=== PATIENT | female | born 1975 | race Caucasian/White ===

== ENCOUNTER 2017-07-31 02:24 | Emergency (ER) | payer SELFPAY ==
[2017-07-31 02:25] VITALS: BP 108/71; PULSE 103; RESP 16; TEMP 36.2; O2SAT 99; BMI 25.9
--- NOTE | 2017-07-31 02:50 | RAD_ITS ---
STUDY: X-RAY CHEST REASON FOR EXAM: Female, 41 years old. Unresponsive TECHNIQUE: Frontal view COMPARISON: None. FINDINGS: The lungs are clear and expanded. There is no demonstrated pleural abnormality. Normal size heart. Normal mediastinum and jasmin. Normal visualized pulmonary arteries. Normal visualized aortic arch and descending thoracic aorta. Normal visualized thoracic spine. Normal visualized ribs, clavicles, and shoulders. There is no demonstrated abnormality of the visualized soft tissue structures of the upper abdomen. RAD/Chest 1 View (Portable) IMPRESSION: Normal x-ray examination of the chest. Electronically Signed: Keenan Kaur MD at 4:22 EDT , Service support ,
--- NOTE | 2017-07-31 02:50 | CT_ITS ---
STUDY: CT BRAIN WITHOUT CONTRAST REASON FOR EXAM: Female, 41 years old. Unresponsive RADIATION DOSAGE (If Supplied By Facility): CTDIvol = ( 44.99 ) mGy, DLP = ( 796.11 ) mGycm TECHNIQUE: Transaxial CT imaging of the brain was performed without administration of intravenous contrast material. Individualized dose optimization techniques were used for this CT. COMPARISON: None. FINDINGS: Normal soft tissue structures. Normal calvarium. Normal size ventricles and extra-axial spaces for the patient's age. Normal white matter tracts of the cerebral hemispheres. Normal basal ganglia and thalami. Normal brainstem. Normal cerebellum. There is no intracranial hemorrhage. There are no findings of an acute ischemic infarction. Normal visualized paranasal sinuses. CT/Brain/Head without Contrast IMPRESSION: Normal unenhanced CT scan of the brain. Electronically Signed: Keenan Kaur MD at 4:08 EDT , Service support ,
--- NOTE | 2017-07-31 02:51 | EKG12_ITS ---
Test Reason : ALT MENTAL STATUS Blood Pressure : / mmHG Vent. Rate : 103 BPM Atrial Rate : 103 BPM P-R Int : 132 ms QRS Dur : 070 ms QT Int : 354 ms P-R-T Axes : 061 068 042 degrees QTc Int : 463 ms Sinus tachycardia Otherwise normal ECG Confirmed by TRICIA QUIÑONES ([id number]), food editor CHANG MADRIGAL ([id number] on 08/03/2017 10:22:14 AM Referred By: TIMOTHY Confirmed By:TRICIA QUIÑONES
[2017-07-31 03:14] LABS: Carboxyhemoglobin Frac (CO) 1.7 % (0.0-1.5)
[2017-07-31 03:16] LABS: Absolute Lymphocyte Count 2.25 X10^3/ul (0.83-4.51); Absolute Neutrophil Count 3.6 X10^3/uL (2.0-7.7); Basophil# 0.05 X10^3/uL; Basophil% 0.8 % (0-1); Eosinophil# 0.29 X10^3/uL; Eosinophils% 4.4 % (0-5); Hematocrit 36.7 % (37-47); Lymphocyte # 2.25 X10^3/ul (4.0); Lymphocyte % 34.1 % (19-41); Mean Corp Hgb Conc 32.7 g/gl (32-36); Mean Corpuscular Hgb 29.8 pg (27.0-32.0); Mean Corpuscular Volume 91.1 fL (81-99); Mean Platelet Vol. 9.6 fl (6.2-12.0); Monocyte# 0.36 X10^3/uL; Monocyte% 5.5 % (0-10); Neutrophil # 3.62 X10^3/uL (2.7-7.7); Neutrophil % 54.9 % (47-70); POSITIVE COUNT NO; POSITIVE DIFFERENTIAL NO; POSITIVE MORPHOLOGY NO; Platelet Count 362 K/mm3 (150-450); RBC Distribution Width SD 46.1 fl (35.1-43.9); Red Blood Count 4.03 M/mm3 (4.2-5.4); White Blood Count 6.6 K/mm3 (4.4-11.0)
[2017-07-31] MEDS: 0.9% Normal Saline 1,000 ML 1000 ML IV (03:19)
[2017-07-31 03:23] LABS: Anion Gap 9 (5-15); BUN 13 mg/dL (7-18); BUN/Creat Ratio 15.4 RATIO (10-20); Calcium,Total 8.1 mg/dL (8.5-10.1); Chloride 110 mmol/L (98-107); Creatinine, Serum 0.84 mg/dL (0.55-1.02); EST Glomerular Filtration Rate 80 mL/min (>60); Est Glom Filt Rate - Afr Amer 96 mL/min (>60); Estimated Creatinine Clearance 80.91 ml/min; Glucose 94 mg/dL (74-106); Potassium 3.8 mmol/L (3.5-5.1); Sodium Level 145 mmol/L (136-145)
--- NOTE | 2017-07-31 03:23 | ED.DCSUM_ITS ---
- ER Visit Summary Date of Service: 07/31/17 Chief Complaint: Unresponsive History of Present Illness: The patient is a 41 F found unresponsive in a car at a gas station. Patient states that she worked all day. She had dinner with friends. She states she had 2 glasses of wine. She states she went back to their house. States around 11 [address] home and that is the last thing she remembers. She denies drug use. Denies drinking any more alcohol. She states the next thing she remembers is someone knocking on her window at a gas station parking lot almost 4 hours later. She does not recall what happened or how she got there. Physical Examination: Vitals are stable. Patient is afebrile. Alert no acute distress. HEENT exam is unremarkable. Neck is supple. No meningismus Lungs are clear and equal bilaterally. Heart is regular rate and rhythm. Abdomen is soft nontender nondistended. Extremities are unremarkable. Skin is warm and dry. No focal neurologic deficit. NIH 0 Remainder of exam is unremarkable. Emergency Department Course and Treatment: EKG is sinus rate of 103 with no acute changes. CBC, chemistries unremarkable. Urinalysis unremarkable. HCG negative. Chest x-ray shows no acute process. CT head shows no acute process. Carbon monoxide level is 1.7. Tox is negative. Salicylate level is less than 1.7. Tylenol level less than 2.0. Alcohol level 178. Her alcohol level was drawn 4 hours after she stated that she left her friend's house. She likely passed out due to high alcohol level. She is observed until sober and will be discharged. Disposition: Discharge home Impression: Alcohol intoxication This note was generated with [employer] dictation software. It may contain incorrect words, spelling, and punctuation that were not noted in review of the chart prior to signing ED Disposition - Plan for ED Patient: Chief Complaint: Alt LOC Instructions: ED Alcohol Intoxication Referrals: Baltazar Mohan [Primary Care Provider] -
[2017-07-31 03:36] LABS: Bacteria 0 SEEN /hpf (None Seen); Mucous, Urine 0 SEEN /hpf (<or=2+); Red Blood Cells-Urine 0 SEEN /hpf (0-5)
[2017-07-31 03:43] LABS: Pregnancy, Serum, hCG Quali. NEGATIVE Negative (0-9 Nonpreg)
[2017-07-31 03:43] LABS: Color, Urine Yellow (Yellow); Glucose, Dipstick Normal (Normal); Ketone-Dipstick Negative (Negative); Leukocyte Esterase-Dipstick 25 /ul (Negative); Nitrite-Dipstick Negative (Negative); Occult Blood-Urine Negative /ul (Negative); Protein-Dipstick Negative (Negative); Urine Bilirubin Dipstick Negative (Negative); Urine Clarity Clear (Clear); Urine Urobilinogen Normal (Normal)
[2017-07-31 03:49] LABS: Squamous Epithelial Cells - UA 5-10 SEEN /hpf (5-10); White Blood Cells 0-5 SEEN /hpf (0-5)
[2017-07-31 03:53] LABS: Amphetamine Urine VISTA NEGATIVE (<1000 ng/mL); Barbiturate Urine VISTA NEGATIVE (< 200 ng/mL); Benzodiazepine Urine VISTA NEGATIVE (< 200 ng/mL); Cocaine Urine VISTA NEGATIVE (< 300 ng/mL); Ecstacy Urine VISTA NEGATIVE (< 500 ng/mL); Methadone Urine VISTA NEGATIVE (< 300 ng/mL); PCP Urine VISTA NEGATIVE (< 25 ng/mL); THC Urine VISTA NEGATIVE (< 50 ng/mL); Vista UDS pH Range 6
[2017-07-31 04:21] LABS: Salicylate < 1.7 mg/dL (2.8-20.0)
--- NOTE | 2017-07-31 04:38 | ED.DEP ---
ED Disposition - Plan for ED Patient: Chief Complaint: Alt LOC Instructions: ED Alcohol Intoxication Referrals: Baltazar Mohan [Primary Care Provider] -
[2017-07-31 04:57] LABS: Acetaminophen (Tylenol) Level < 2.0 ug/mL (10.0-30.0)
[2017-07-31 05:04] VITALS: BP 108/64; PULSE 80; RESP 16; O2SAT 100
== END 2017-07-31 05:45 | disposition home or self-care (01) ==
PROVIDERS: Emergency Provider Emergency Medicine; Family Provider Internal Medicine Infectious Disease; PCP Internal Medicine Infectious Disease
DX: F10.129 Alcohol abuse with intoxication, unspecified (principal); Y90.6 Blood alcohol level of 120-199 mg/100 ml; F32.9 Major depressive disorder, single episode, unspecified
CPT/HCPCS: 70450; 71045; 80048; 80307; 80320; 80329; 81001; 82375; 84703; 85025; 93005; 99285; J7030; A4216; G0480

== ENCOUNTER → 2019-08-17 15:57 | Outpatient (CLI) | payer SELFPAY ==
[2019-08-23 00:39] LABS: HPV Reflexed? NOT INDICATED
== END ==
PROVIDERS: PCP Internal Medicine Infectious Disease; Visit Provider Obstetrics & Gynecology
DX: Z12.4 Encounter for screening for malignant neoplasm of cervix (principal)
CPT/HCPCS: 88175; G0145

== ENCOUNTER 2021-12-29 16:12 | Emergency (ER) | payer OTHER, SELFPAY ==
[2021-12-29 16:14] VITALS: BP 175/111; PULSE 115; RESP 18; TEMP 36.6; O2SAT 100; BMI 26.2
--- NOTE | 2021-12-29 16:30 | ED.RN ---
pt admits to being up all night partying with friends. cocaine, estysy and alcohol
--- NOTE | 2021-12-29 16:36 | EKG12_ITS ---
Test Reason : Blood Pressure : / mmHG Vent. Rate : 114 BPM Atrial Rate : 114 BPM P-R Int : 146 ms QRS Dur : 076 ms QT Int : 356 ms P-R-T Axes : 040 063 029 degrees QTc Int : 490 ms Sinus tachycardia Otherwise normal ECG Confirmed by ANAY DONG, AMALIA ([id number]), visual effects editor BAILEE ACOSTA ([id number]) on 12/31/2021 8:48:00 AM Referred By: ANGELA Confirmed By:AMALIA CUEVA MD
--- NOTE | 2021-12-29 16:37 | EX.ED.DYSGE1 ---
HPI History of Present Illness Chief Complaint: Weakness Informant: patient and friend Narrative Narrative: Presented here with weakness palpitations this morning. Patient with underlying stress. Last evening with friends drank alcohol took ecstasy and cocaine. She states she uses recreational drugs sporadically. She denies suicidal homicidal ideations. She has not slept and currently 4 PM. She states she has not had this happen before. She denies any allergies. Reports history of panic attacks also. Reports currently nauseated. Denies cough. Denies vomiting or diarrhea. Denies urinary symptoms. [facility] Medical History (Updated 12/29/21 @ 17:[address] Edward Crane DO) Borderline hypertension Panic disorder Home Medications venlafaxine 75 mg tablet 75 mg PO DAILY 07/31/17 [History Last Taken Unknown] hydroxyzine pamoate 25 mg capsule 25 mg PO TID PRN PRN Anxiety #20 caps 12/29/21 [Rx Last Taken Unknown] ondansetron 4 mg disintegrating tablet 4 mg PO Q6H PRN nausea and vomiting #10 tabs 12/29/21 [Rx Last Taken Unknown] Allergy/AdvReac Type Severity Reaction Status Date / Time No Known Allergies Allergy Verified 12/29/21 16:17 Social History Smoking Status: Never smoker [facility] ED Constitutional Constitutional ED: Denies chills, fever(s) or sweats Eyes Eyes: Denies change in vision ENT ENT ED: Denies dysphagia or sore throat Cardiovascular Cardiovascular: Reports palpitations; Denies chest pain, leg edema or racing heartbeat Respiratory/Chest Respiratory/Chest: Denies cough, dyspnea or dyspnea on exertion Gastrointestinal Gastrointestinal: Reports nausea; Denies abdominal pain, diarrhea or vomiting Genitourinary Genitourinary ED: Denies dysuria, hematuria or urinary frequency Musculoskeletal Musculoskeletal: Denies back pain, extremity pain or neck pain Integumentary Denies rash or wounds Neurologic Neurologic: Denies headache(s), paresthesias or weakness Psychiatric Psychiatric: Denies suicidal ideation or suicidal thoughts EXAM Physical Exam Const Vital Signs: 12/29/21 16:14 12/29/21 16:49 Temperature 98 F Temperature Source Temporal Pulse Rate 115 H Respiratory Rate 18 Respiratory Effort Normal Blood Pressure 175/111 H Blood Pressure Mean 132 Pulse Ox 100 Oxygen Delivery Method Room Air Positive well nourished and well developed General Appearance ED: well developed and NAD HEENT Reports dry mucous membranes HEENT Narrative: Mild dry mucosal membranes normocephalic and atraumatic Mouth ED: Yes dry mucous membranes Mouth: dry mucous membranes Eyes PERRL, EOMs intact bilaterally and conjunctivae normal General Eye ED: Yes normal appearance of both eyes Neck no lymphadenopathy and supple General: Negative for tenderness Chest Wall Chest: Negative for tenderness Resp normal respiratory effort and normal air movement Effort and Inspection: symmetric chest movement; Negative for respiratory distress Cardio regular rhythm and no murmurs Rate: tachycardic Peripheral Pulses: pulses 2+ throughout GI normal to inspection, nondistended, normoactive bowel sounds and non-tender Palpation: Negative for guarding or rebound tenderness present Back/Spine no CVA tenderness and no thoracic nor lumbar tenderness Extremity normal to inspection General Extremety ED: Negative for edema or tenderness General Extremity: Negative for edema Neuro oriented x3 and no sensory deficits noted Sensorium / Orientation: awake and alert Skin no rashes or lesions noted and no wounds MDM MDM MDM Narrative Medical decision making narrative: Patient tachycardic elevated blood pressure. EKG sinus rhythm. With her reported history of ecstasy and cocaine likely residual results causing her to be symptomatic. She has slight dry mucosal membranes. We will check labs, will treat with fluids Zofran and Ativan. Will reevaluate. Labs stable slight hypokalemia at 3.4. On reevaluation clinically was feeling better she still slightly tachycardic, however likely residual effects. Low concerns for PE as she denies dyspnea with her tachycardia. There is clear reasons for her tachycardia. She denies suicidal or homicidal ideations. We will send prescription for hydroxyzine and Zofran to her pharmacy. She is tolerating p.o. intake while in the ED. She will follow-up as an outpatient. All questions were answered. Lab Data Attestation: I reviewed the patient's lab results. Labs: Laboratory Results - last 24 hr 12/29/21 12/29/21 16:30 16:30 WBC 11.3 H RBC 4.36 Hgb 13.0 Hct 39.9 MCV 91.5 MCH 29.8 MCHC 32.6 RDW Std Deviation 49.1 H RDW Coeff of Shae 14.5 Plt Count 372 MPV 9.6 Immature Gran % (Auto) 0.500 Neut % (Auto) 76.1 H Lymph % (Auto) 14.3 L Banks % (Auto) 7.2 Eos % (Auto) 1.4 Baso % (Auto) 0.5 Absolute Neuts (auto) 8.6 H Absolute Lymphs (auto) 1.61 Nucleated RBC % 0 Sodium 139 Potassium 3.4 L Chloride 105 Carbon Dioxide 25.0 Anion Gap 9 BUN 9 Creatinine 0.86 Estim Creat Clear Calc 75.12 Est GFR (MDRD) Af Amer 93 Est GFR (MDRD) Non-Af 77 BUN/Creatinine Ratio 10.5 Glucose 125 H Calcium 9.5 EKG Initial EKG: Attestation: I personally reviewed and interpreted this EKG as follows: Comments: Sinus rate of 114, no ST or T wave changes. Discharge Plan Triage Chief Complaint: Weakness ED Provider: Edward Crane Dx/Rx/DC Orders Clinical Impression: Palpitation, Anxiety, Polysubstance use disorder, Hypokalemia Instructions: Hypokalemia Dc, ED Anxiety Reaction, ED Palpitations Prescriptions: New hydroxyzine pamoate [hydroxyzine pamoate] 25 mg capsule 25 mg PO TID PRN PRN (Reason: Anxiety) Qty: 20 0RF ondansetron 4 mg tablet,disintegrating 4 mg PO Q6H PRN (Reason: nausea and vomiting) Qty: 10 0RF No Action venlafaxine 75 MG tablet 75 mg PO DAILY Primary Care Provider: Baltazar Mohan Referrals: [facility] Doctor,Out of [Non-Staff] - 1 Week Activity Restrictions/Additional Instructions: Your symptoms combination of your anxiety and your polysubstance use. Avoid drug use. Take medications as prescribed and follow-up with your doctor. Disposition Disposition: Home, Self Care
[2021-12-29 16:56] LABS: Absolute Lymphocyte Count 1.61 X10^3/uL (0.83-4.51); Absolute Neutrophil Count 8.6 X10^3/uL (2.0-7.7); Basophil# 0.06 X10^3/uL; Basophil% 0.5 % (0-1); Eosinophil# 0.16 X10^3/uL; Eosinophils% 1.4 % (0-5); Hematocrit 39.9 % (37-47); Lymphocyte # 1.61 X10^3/ul (0.83-4.51); Lymphocyte % 14.3 % (19-41); Mean Corp Hgb Conc 32.6 g/dL (32-36); Mean Corpuscular Hgb 29.8 pg (27.0-32.0); Mean Corpuscular Volume 91.5 fL (81-99); Mean Platelet Vol. 9.6 fl (6.2-12.0); Monocyte# 0.81 X10^3/uL; Monocyte% 7.2 % (0-10); NRBC Flagged by Analyzer 0 % (0-5); Neutrophil # 8.57 X10^3/uL (2.7-7.7); Neutrophil % 76.1 % (47-70); Platelet Count 372 K/mm3 (150-450); RBC Distribution Width CV 14.5 % (11.6-14.6); RBC Distribution Width SD 49.1 fl (35.1-43.9); Red Blood Count 4.36 M/mm3 (4.2-5.4); White Blood Count 11.3 K/mm3 (4.4-11.0)
[2021-12-29] MEDS: Ondansetron 4 MG/2 ML Vial IV (16:57)
[2021-12-29] MEDS: LORazepam 2 MG/ML Syringe 1 MG IV (16:57)
[2021-12-29] MEDS: 0.9% Normal Saline 1,000 ML 1000 ML IV (16:57)
[2021-12-29 17:09] LABS: Anion Gap 9 (5-15); BUN 9 mg/dL (7-18); BUN/Creat Ratio 10.5 RATIO (10-20); Calcium,Total 9.5 mg/dL (8.5-10.1); Chloride 105 mmol/L (98-107); Creatinine, Serum 0.86 mg/dL (0.55-1.02); EST Glomerular Filtration Rate 77 mL/min (>60); Est Glom Filt Rate - Afr Amer 93 mL/min (>60); Estimated Creatinine Clearance 75.12 ml/min; Glucose 125 mg/dL (74-106); Potassium 3.4 mmol/L (3.5-5.1); Sodium Level 139 mmol/L (136-145)
[2021-12-29] MEDS: Potassium Chloride Oral Tablet 20 MEQ PO (17:57)
== END 2021-12-29 18:12 | disposition home or self-care (01) ==
PROVIDERS: Emergency Provider Emergency Medicine; PCP Internal Medicine Infectious Disease; Visit Provider Emergency Medicine
DX: R00.2 Palpitations (principal); F19.19 Other psychoactive substance abuse with unspecified psychoactive substance-induced disorder; E87.6 Hypokalemia; I10 Essential (primary) hypertension; R53.1 Weakness; F41.9 Anxiety disorder, unspecified
CPT/HCPCS: 80048; 85025; 93005; 99285; J7030; J2405

== ENCOUNTER 2023-02-14 05:35 | Emergency (ER) | payer SELFPAY ==
[2023-02-14 05:36] VITALS: BP 100/61; BP 117/68; PULSE 119; PULSE 60; RESP 14; RESP 18; TEMP 36.1; O2SAT 100; O2SAT 93; BMI 27.4
--- OUTSIDE RECORDS SUMMARY | 2023-02-14 06:23 | XMS RPT_ITS | CCD ---
Author Name Unknown Address [address] [place] [address] Organization [facility] Care Team Providers Care Embedded Systems Developer Name Role Phone LIBAN FORMAN MD Admitting Unavailable LIBAN FORMAN MD Attending Unavailable LIBAN FORMAN MD Primary Care Unavailable LIBAN FORMAN MD Consulting Unavailable PROVIDER, UNKNOWN Consulting Unavailable PROVIDER, UNKNOWN Consulting Unavailable PROVIDER, UNKNOWN Consulting Unavailable Problems Problem Classification Problem Date Documented Da te Episodic/Chronic Other nutritional; endocrine; and metabolic disorders (1 source) Abnormal weight gain; Translations: [Abnormal weight gain] Onset: 08-25-2022 Episodic Results Test Name Value Interpretation Reference Range Facil ity Encounters Encounter Date Encounter Type Care Provider Facility Start: 08-25-2022 ambulatory LIBAN Webb [facility] Progress note 09-12-2020 Note Date & Type Note Facility 09-12-2020 Note HNO ID: [id number] Author: Jason Ortiz APRN.[employer] Service: ? Author Type: Nurse Practitioner Type: Progress Notes Filed: 09/12/2020 2:45 PM Note Text: Subjective HPI Nontoxic-appearing female presents urgent care chief complaint sinus pressure and drainage. Duration of sinus pressure 8 days. Associated symptoms sinus pressure ear pain and head congestion. States she does have a transient cough. Patient states sinus pressure has worsened over the last 2 days. No OTC medication use. No known sick contacts. Has had COVID-19 approximately 10 months ago. Is not vaccinated. Denies any fevers, productive cough, abdominal pain, chest pain, shortness of breath pleuritic pain, visual changes or change in bowel or bladder habit. Past medical history prescription medication use allergies reviewed. .Patient presents with: Head Congestion: drainage, ear pain x 1 week History reviewed. No pertinent past medical history. History reviewed. No pertinent surgical history. ALLERGIES Patient has no known allergies. MEDICATIONS venlafaxine (EFFEXOR) 75 mg tablet Take 75 mg by mouth once daily. History reviewed. No pertinent family history. Social History Tobacco Use - Smoking status: Never Smoker - Smokeless tobacco: Never Used Substance Use Topics - Alcohol use: Not on file - Drug use: Not on file BP 124/74 Pulse 92 Temp 37.1 ?C (98.7 ?F) Resp 16 Wt 71.7 kg (158 lb) LMP 03/27/2019 SpO2 98% Review of Systems Constitutional: Negative for chills, fever and malaise/fatigue. HENT: Positive for congestion and sinus pain. Negative for ear discharge, ear pain and sore throat. Eyes: Negative for blurred vision, pain, discharge and redness. Respiratory: Negative for cough, sputum production, shortness of breath, wheezing and stridor. Cardiovascular: Negative for chest pain. Gastrointestinal: Negative for abdominal pain, diarrhea, nausea and vomiting. Musculoskeletal: Negative for myalgias. Skin: Negative for itching and rash. Neurological: Positive for headaches. Negative for dizziness. Objective Physical Exam Constitutional: General: She is not in acute distress. Appearance: She is not diaphoretic. HENT: Head: Normocephalic. Right Ear: Hearing, tympanic membrane, ear canal and external ear normal. No mastoid tenderness. Left Ear: Hearing, tympanic membrane, ear canal and external ear normal. No mastoid tenderness. Mouth/Throat: Lips: [place]. Mouth: Mucous membranes are moist. Pharynx: Oropharynx is clear. Uvula midline. No pharyngeal swelling, oropharyngeal exudate, posterior oropharyngeal erythema or uvula swelling. Eyes: Conjunctiva/sclera: Conjunctivae normal. Pupils: Pupils are equal, round, and reactive to light. Cardiovascular: Rate and Rhythm: Normal rate and regular rhythm. Heart sounds: Normal heart sounds. Pulmonary: Effort: Pulmonary effort is normal. No tachypnea, accessory muscle usage or respiratory distress. Breath sounds: Normal breath sounds. No stridor. Abdominal: Palpations: Abdomen is soft. Tenderness: There is no abdominal tenderness. Musculoskeletal: Cervical back: Normal range of motion and neck supple. No rigidity or tenderness. Lymphadenopathy: Cervical: No cervical adenopathy. Skin: General: Skin is warm and dry. Neurological: Mental Status: She is alert and oriented to person, place, and time. ASSESSMENT/PLAN: 1. Suspected COVID-19 virus infection - ICD9: V01.79, ICD10: Z20.822 (primary diagnosis) - 2019 CORONAVIRUS 2. Acute maxillary sinusitis, recurrence not specified - ICD9: 461.0, ICD10: J01.00 Patient will be tested for COVID-19. With duration of sinus pressure and sinus pressure worsening day 7 and 8 patient be placed on amoxicillin. Follow-up with PCP if symptoms are not improving. Home quarantine until Covid results are reviewed. Patient was educated on supportive therapies. Patient will follow up with primary care provider as needed. Patient was instructed to immediately proceed to emergency room for any new, worsening, or symptoms lasting longer than anticipated. The patient's clinical presentation is otherwise unremarkable at this time. Based on exam and clinical finding, the patient is stable for discharge. Plan of care was discussed with patient. Patient verbalizes understanding and agrees to plan of care. This note was generated using [employer] software. It may contain errors in wording, punctuation, or spelling. Jason Ortiz APRN.[facility] Summary Purpose Family History No Family History Records FoundNo Family History Records FoundNo Family History Records Found Advance Directives No Advanced Directives Records FoundNo Advanced Directives Records FoundNo Advanced Directives Records Found Additional Source Comments INFORMATION SOURCE (unrecogn ized section and content) DATE CREATED AUTHOR AUTHOR'S ORGANIZ ATION 07/17/2021 [facility] DATE CREATED AUTHOR AUTHOR'S ORGANIZ ATION 08/26/2022 [facility] FOR RECORDS PERTAINING TO PATIENTS WHO ARE OR HAVE BEEN ENROLLED IN A CHEMICAL DEPENDENCY/SUBSTANCEABUSE PROGRAM, SOME INFORMATION MAY BE OMITTED. This clinical summary was aggregated from multiple sources. Caution should be exercised in using it in the provision of clinical care. This summary normalizes information from multiple sources, and as a consequence, information in this document may materially change the coding, format and clinical context of patient data. In addition, data may be omitted in some cases. CLINICAL DECISIONS SHOULD BE BASED ON THE PRIMARY CLINICAL RECORDS. [employer] provides no warranty or guarantee of the accuracy or completeness of information in this document.
--- NOTE | 2023-02-14 07:03 | EX.ED.DYSGE1 ---
HPI History of Present Illness Chief Complaint: Overdose Informant: patient and EMS Narrative Narrative: 47-year-old female with no significant past medical history. She reports she was at a green party this evening and she was drinking in the next and she remembers is waking up by EMS. States they are called secondary to multiple overdoses. They report when they arrived the patient was unresponsive but breathing. States they gave her 3 doses of Narcan and she awoke. Patient states that she did not deliberately do any type of opioid this evening and that she is not homicidal or suicidal [facility] Medical History (Updated 02/14/23 @ 07:[address] Jeffry Garcia DO) Borderline hypertension Panic disorder Home Medications venlafaxine 75 mg tablet 75 mg PO DAILY 07/31/17 [History Last Taken Unknown] hydroxyzine pamoate 25 mg capsule 25 mg PO TID PRN PRN Anxiety #20 caps 12/29/21 [Rx Last Taken Unknown] ondansetron 4 mg disintegrating tablet 4 mg PO Q6H PRN nausea and vomiting #10 tabs 12/29/21 [Rx Last Taken Unknown] Allergy/AdvReac Type Severity Reaction Status Date / Time No Known Allergies Allergy Verified 12/29/21 16:17 Social History Smoking Status: Never smoker ROS ROS ED Constitutional Constitutional ED: Denies chills or fever(s) Eyes Eyes: Denies change in vision ENT ENT ED: Denies sore throat Cardiovascular Cardiovascular: Denies chest pain Respiratory/Chest Respiratory/Chest: Denies cough or dyspnea Gastrointestinal Gastrointestinal: Denies abdominal pain, diarrhea, nausea or vomiting Genitourinary Genitourinary ED: Denies dysuria Musculoskeletal Musculoskeletal: Denies myalgias Integumentary Denies rash Neurologic Neurologic: Denies headache(s) Psychiatric Psychiatric: Denies suicidal ideation or suicidal thoughts Hematologic/Lymphatic Hematologic/Lymphatic: Denies easy bleeding or easy bruising EXAM Physical Exam Const Vital Signs: 02/14/23 05:36 02/14/23 05:36 Temperature 97 F L Temperature Source Temporal Pulse Rate 119 H 60 Respiratory Rate 18 14 Blood Pressure 100/61 117/68 Blood Pressure Mean 74 84 Pulse Ox 100 93 Positive well nourished and well developed General Appearance ED: well developed HEENT HEENT Narrative: Normocephalic atraumatic No tongue or lip swelling; no oral lesions no airway edema or compromise No signs of infection posterior pharynx Eyes PERRL and EOMs intact bilaterally Neck supple Neck Narrative: No nuchal rigidity or meningeal signs Chest Wall palpation of chest normal Resp normal respiratory effort and clear to auscultation bilaterally Cardio regular rhythm Rate: tachycardic and other Other Details: Tachycardic rate with regular rhythm No murmurs rubs or gallop GI non-tender and non-distended Auscultation: hypoactive bowel sounds Palpation: soft Extremity normal to inspection Neuro oriented x3, CN's II-XII intact bilaterally and no sensory deficits noted Sensorium / Orientation: alert Motor Exam: strength 5/5 throughout Psych mental status grossly normal Skin no rashes or lesions noted MDM MDM MDM Narrative Medical decision making narrative: Patient presented to the ER tachycardic but otherwise in no acute distress. Patient denied any delivery opioid ingestion and as she did not actively try to harm herself I do not feel there is need for psychiatric evaluation. Also she is in no respiratory distress satting in the high 90s on room air and therefore there is no need for emergent airway stabilization. Patient was watched in the ER for over 1 hour which is well above the 30-minute half-life of Narcan and she remained in no acute distress. Therefore she is low risk for return of mental status and respiratory depression and she is otherwise safe for discharge Discharge Plan Triage Chief Complaint: Overdose ED Provider: Jeffry Garcia Dx/Rx/DC Orders Clinical Impression: Opioid overdose Instructions: Naloxone Nasal for Overdose Steps, ED Overdose, Opiate Prescriptions: No Action venlafaxine 75 MG tablet 75 mg PO DAILY hydroxyzine pamoate [hydroxyzine pamoate] 25 mg capsule 25 mg PO TID PRN PRN (Reason: Anxiety) Qty: 20 0RF ondansetron 4 mg tablet,disintegrating 4 mg PO Q6H PRN (Reason: nausea and vomiting) Qty: 10 0RF Primary Care Provider: Baltazar Mohan Referrals: Baltazar Mohan MD [Primary Care Provider] - Disposition Disposition: Home, Self Care Discharge Date/Time: 02/14/23 07:12
== END 2023-02-14 07:12 | disposition home or self-care (01) ==
PROVIDERS: Emergency Provider Emergency Medicine; PCP Internal Medicine Infectious Disease; Referring Provider Emergency Medicine; Visit Provider Emergency Medicine
DX: T40.2X1A Poisoning by other opioids, accidental (unintentional), initial encounter (principal); F41.0 Panic disorder [episodic paroxysmal anxiety]; Z79.899 Other long term (current) drug therapy; R00.0 Tachycardia, unspecified
CPT/HCPCS: 99282

== ENCOUNTER → 2023-06-18 | Outpatient (CLI) | payer SELFPAY ==
[2023-06-18 08:32] LABS: Hemoglobin 13.2 g/dL (12.0-15.0); Mean Corp Hgb Conc 32.2 g/dL (32-36); Mean Corpuscular Hgb 30.1 pg (27.0-32.0); Mean Corpuscular Volume 93.4 fL (81-99); Mean Platelet Vol. 9.5 fl (6.2-12.0); Platelet Count 377 K/mm3 (150-450); RBC Distribution Width CV 13.6 % (11.6-14.6); RBC Distribution Width SD 46.6 fl (35.1-43.9); Red Blood Count 4.39 M/mm3 (4.2-5.4); White Blood Count 5.5 K/mm3 (4.4-11.0)
[2023-06-18 08:33] LABS: Color, Urine Yellow (Yellow); Glucose, Dipstick Normal (Normal); Ketone-Dipstick Negative (Negative); Leukocyte Esterase-Dipstick 500 /ul (Negative); Nitrite-Dipstick Negative (Negative); Occult Blood-Urine 25 /ul (Negative); Protein-Dipstick 30 mg/dl (Negative); Urine Bilirubin Dipstick Negative (Negative); Urine Clarity Cloudy (Clear); Urine Urobilinogen Normal (Normal)
[2023-06-18 09:20] LABS: ALB/GLOB Ratio 1.1 RATIO (0.9-2.4); AST(SGOT) 16 U/L (15-37); Alanine Aminotransfer ALT/SGPT 32 U/L (13-56); Albumin, Serum 3.8 g/dL (3.2-5.0); Alkaline Phosphatase 68 U/L (45-117); Anion Gap 3 (5-15); BUN 13 mg/dL (7-18); BUN/Creat Ratio 17.9 RATIO (10-20); CRP 3.67 mg/L (0.0-3.0); Calcium,Total 9.1 mg/dL (8.5-10.1); Chloride 107 mmol/L (98-107); Cholesterol 234 mg/dL (200); Creatinine, Serum 0.73 mg/dL (0.55-1.02); EST Glomerular Filtration Rate 92 mL/min (>60); Est Glom Filt Rate - Afr Amer 111 mL/min (>60); Globulin 3.4 g/dL (2.2-4.2); Glucose 112 mg/dL (74-106); High Density Lipoprotein 64 mg/dL; Potassium 3.6 mmol/L (3.5-5.1); Protein, Total 7.2 g/dL (6.4-8.2); Sodium Level 139 mmol/L (136-145); Thyroid Stim Hormone (TSH) 1.62 uIU/mL (0.358-3.74); Triglycerides 82 mg/dL; Very Low Density Lipoprotein 16 mg/dL (5-40)
[2023-06-18 12:22] LABS: Hemoglobin A1c 5.1 % (3.8-5.6)
== END | disposition home or self-care (01) ==
LOC: LAB 08:00
PROVIDERS: PCP Internal Medicine Infectious Disease; Referring Provider Internal Medicine Infectious Disease; Visit Provider Internal Medicine Infectious Disease
DX: R63.5 Abnormal weight gain (principal)
CPT/HCPCS: 36415; 80053; 80061; 81002; 83036; 84443; 85027; 86140